=== PATIENT | male | born 1975 | race Two or more races ===

== ENCOUNTER 2023-12-09 19:15 | Emergency (ER) | payer SELFPAY ==
[~2023-12-09] VITALS: Ht 170.2 cm; Wt 88.6 kg
[2023-12-09 19:22] VITALS: TEMP 97.7
[2023-12-09] MEDS: TraMADol HCL 50 MG TABLET PO ONE (20:55)
[2023-12-10 00:28] VITALS: BP 141/77; PULSE 77; RESP 17
== END 2023-12-10 00:29 | disposition home or self-care (01) ==
LOC: EMS 19:16
DX: S20.211A Contusion of right front wall of thorax, initial encounter (principal); Z98.890 Other specified postprocedural states; W19.XXXA Unspecified fall, initial encounter; Y93.89 Activity, other specified; Y92.89 Other specified places as the place of occurrence of the external cause; Y99.8 Other external cause status
CPT/HCPCS: 71101; 99283